=== PATIENT | female | born 1935 | race Caucasian/White ===

== ENCOUNTER 2017-05-20 11:48 | Emergency (ER) | payer MEDICARE, OTHER ==
[2017-05-20 12:22] VITALS: BP 111/59
--- NOTE | 2017-05-20 14:18 | EDM.PDOC ---
ED HPI GENERAL MEDICAL PROBLEM - General Chief Complaint: Lower Extremity Injury/Pain Stated Complaint: FALL Time Seen by Provider: 05/20/17 11:50 Source of Information: Reports: Patient, EMS, Family History Limitations: Reports: Altered Mental Status - History of Present Illness INITIAL COMMENTS - FREE TEXT/NARRATIVE: 81 y.o.w.f. with dementia, came by EMS to the ed after she fell at the memory care unit. As per caregiver, Pt passed out but recover in a few minutes. Pt is not able to give a HPI, family is present. As per ems, pt may have injured her left knee. However, pt was ambulating fine. No F/V N/V BP 81/41 pulse 65 temp 36.4 pulse ox 96% Onset: Today Onset Date: 05/20/17 Onset Time: 11:00 Duration: Minutes:, Improving Location: Reports: Generalized Severity: Mild Improves with: Reports: Rest Worsens with: Reports: Movement Context: Reports: Other (pt passed out and fell) - Related Data Allergies Allergy/AdvReac Type Severity Reaction Status Date / Time citalopram [From Celexa] Allergy Cannot Verified 05/20/17 12:25 Remember donepezil [From Aricept] Allergy Cannot Verified 05/20/17 12:25 Remember propoxyphene Allergy Cannot Verified 05/20/17 12:25 Remember clortrimazole Allergy Cannot Uncoded 05/20/17 12:25 Remember Home Meds: Home Meds Acetaminophen 600 mg PO Q4HR PRN 07/15/16 [History] Alum Hydrox/Mag Hydrox/Simeth [Maalox Advanced] 15 ml PO Q4HR PRN 07/15/16 [ History] Alum Hydrox/Mag Hydrox/Simeth [Maalox Advanced] 30 ml PO DAILY 07/15/16 [History ] Alum Hydrox/Mag Hydrox/Simeth [Mag-Al Plus] 30 ml PO Q4HR PRN 07/15/16 [History] Bisacodyl [Dulcolax] 10 mg RC DAILY PRN 07/15/16 [History] Calcium Carbonate [Tums] 500 mg PO Q4HR PRN 07/15/16 [History] Calcium Polycarbophil [Fiber Laxative] 625 mg PO Q3HR PRN 07/15/16 [History] Docusate Sodium [Colace] 100 mg PO BID 07/15/16 [History] Ibuprofen 200 mg PO Q6HR 07/15/16 [History] Ibuprofen 400 mg PO Q6HR PRN 07/15/16 [History] Lisinopril 20 mg PO DAILY 07/15/16 [History] Loperamide HCl [Imodium A-D] 2 mg PO Q6HR PRN 07/15/16 [History] Magnesium Hydroxide [Milk of Magnesia] 30 ml PO DAILY PRN 07/15/16 [History] Multivitamin [Multivitamins] 1 each PO BID 07/15/16 [History] Na Phos,M-B/Na Phos,Di-Ba [Fleet Enema] 1 bottle RECTAL DAILY PRN 07/15/16 [ History] PEG 400/Hypromellose/Glycerin [Artificial Tears Drops] 15 ml OP Q2HR PRN [History] Pectin [Throat Drops] 1 saleem PO Q2HR 07/15/16 [History] QUEtiapine [SEROquel] 12.5 mg PO DAILY 07/15/16 [History] guaiFENesin [Robitussin] 2 tsp PO Q4HR PRN 07/15/16 [History] Past Medical History HEENT History: Reports: Hard of Hearing, Impaired Vision Cardiovascular History: Reports: High Cholesterol, Hypertension Gastrointestinal History: Reports: Irritable Bowel Syndrome 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: Musculoskeletal History: Reports: Osteoarthritis Neurological History: Reports: Alzheimers Disease Hematologic History: Reports: Anemia Dermatologic History: Reports: Other (See Below) Other Dermatologic History: Rash; cream to tx - Infectious Disease History Infectious Disease History: Reports: C-Difficile, Measles, Mumps - Past Surgical History Musculoskeletal Surgical History: Reports: None Social & Family History - Family History Family Medical History: Noncontributory - Tobacco Use Smoking Status *Q: Never Smoker - Caffeine Use Caffeine Use: Reports: Coffee - Recreational Drug Use Recreational Drug Use: No Review of Systems - Review of Systems Review Of Systems: Unable To Obtain ED EXAM, GENERAL - Physical Exam Exam: See Below Exam Limited By: Altered Mental Status General Appearance: Alert, WD/WN, No Apparent Distress Eye Exam: Bilateral Eye: Normal Inspection Ears: Normal External Exam Ear Exam: Bilateral Ear: Auricle Normal Nose: Normal Inspection Throat/Mouth: Normal Inspection, Normal Lips Head: Atraumatic, Normocephalic Neck: Normal Inspection, Supple, Non-Tender Respiratory/Chest: No Respiratory Distress, Lungs Clear, Normal Breath Sounds, No Accessory Muscle Use, Chest Non-Tender Cardiovascular: Normal Peripheral Pulses, Regular Rate, Rhythm, No Edema, No Gallop Peripheral Pulses: 1+: Radial (L), Radial (R) GI/Abdominal: Normal Bowel Sounds, Soft, Non-Tender (Female) Exam: Deferred Rectal (Female) Exam: Deferred Back Exam: Normal Inspection, Full Range of Motion Extremities: Normal Inspection (Pt has a minor SQ hematom a left ant lat knee, FROM, no discomfort, however.), Normal Range of Motion Neurological: Alert, CN II-XII Intact, Normal Gait, No Motor/Sensory Deficits Psychiatric: Normal Affect Skin Exam: Warm, Dry, Intact, Normal Color, No Rash Lymphatic: No Adenopathy Course - Vital Signs Text/Narrative:: 81 y.o.w.f. with dementia, came by EMS to the ed after she fell at the memory care unit. As per caregiver, Pt passed out but recover in a few minutes. Pt is not able to give a HPI, family is present. As per ems, pt may have injured her left knee. However, pt was ambulating fine. No F/V N/V BP 81/41 pulse 65 temp 36.4 pulse ox 96% PE: WNWD WF with low BP initially. Labs: CBC and BMP WNL GFR 59 Imaging: Not indicated. Impression: Vasovagal syncopy Tx: after the labs returned, Family urged to D/C patient. No I v fluid was given Her recheck BP improved to SBP 112 Reexam: Pt was ambulating independently Plan: D/C with instructions Last Recorded V/S: Last Vital Signs Temp 36.5 C 05/20/17 11:50 Pulse 58 L 05/20/17 12:00 Resp 14 05/20/17 12:00 BP 111/59 L 05/20/17 12:00 Pulse Ox 96 05/20/17 12:00 - Orders/Labs/Meds Labs: Laboratory Tests 05/20/17 05/20/17 05/20/17 Range/Units 12:33 12:35 12:35 WBC 8.5 (4.5-12.0) X10-3/uL RBC 3.97 (3.23-5.20) x10(6)uL Hgb 12.6 (11.5-15.5) g/dL Hct 36.5 (30.0-51.3) % MCV 92.1 (80-96) fL MCH 31.8 (27.7-33.6) pg MCHC 34.5 (32.2-35.4) g/dL RDW 12.5 (11.5-15.5) % Plt Count 223 (125-369) X10(3)uL MPV 8.0 (7.4-10.4) fL Neut % (Auto) 75.8 (46-82) % Lymph % (Auto) 17.0 (13-37) % Andrews % (Auto) 5.5 (4-12) % Eos % (Auto) 1 (1.0-5.0) % Baso % (Auto) 0 (0-2) % Neut # (Auto) 6.5 (1.6-8.3) # Lymph # (Auto) 1.4 (0.6-5.0) # Andrews # (Auto) 0.5 (0.0-1.3) # Eos # (Auto) 0.1 (0.0-0.8) # Baso # (Auto) 0.0 (0.0-0.2) # PT 11.5 H (8.7-11.1) INR 1.14 H (0.89-1.13) Sodium (135-145) mmol/L Potassium (3.5-5.3) mmol/L Chloride (100-110) mmol/L Carbon Dioxide (21-32) mmol/L BUN (7-18) mg/dL Creatinine (0.55-1.02) mg/dL Est Cr Clr Drug Dosing Estimated GFR (MDRD) (>60) BUN/Creatinine Ratio (9-20) Glucose (80-116) mg/dL Calcium (8.6-10.2) mg/dL Urine Color Yellow (YELLOW) Urine Appearance Clear (CLEAR) Urine pH 7.0 H (5.0-6.5) Ur Specific [place] 1.010 (1.010-1.025) Urine Protein Negative (NEGATIVE) mg/dL Urine Glucose (UA) Normal (NEGATIVE) mg/dL Urine Ketones Negative (NEGATIVE) mg/dL Urine Occult Blood Negative (NEGATIVE) Urine Nitrite Negative (NEGATIVE) Urine Bilirubin Negative (NEGATIVE) Urine Urobilinogen Normal (NEGATIVE) mg/dL Ur Leukocyte Esterase Negative (NEGATIVE) Urine RBC 0-5 (0) Urine WBC 0-5 (0) Ur Squamous Epith Cells Occasional (NS,R,O) Urine Bacteria Rare H (NS) Urine Mucus Few H (NS) 05/20/17 Range/Units 12:35 WBC (4.5-12.0) X10-3/uL RBC (3.23-5.20) x10(6)uL Hgb (11.5-15.5) g/dL Hct (30.0-51.3) % MCV (80-96) fL MCH (27.7-33.6) pg MCHC (32.2-35.4) g/dL RDW (11.5-15.5) % Plt Count (125-369) X10(3)uL MPV (7.4-10.4) fL Neut % (Auto) (46-82) % Lymph % (Auto) (13-37) % Andrews % (Auto) (4-12) % Eos % (Auto) (1.0-5.0) % Baso % (Auto) (0-2) % Neut # (Auto) (1.6-8.3) # Lymph # (Auto) (0.6-5.0) # Andrews # (Auto) (0.0-1.3) # Eos # (Auto) (0.0-0.8) # Baso # (Auto) (0.0-0.2) # PT (8.7-11.1) INR (0.89-1.13) Sodium 142 (135-145) mmol/L Potassium 3.8 (3.5-5.3) mmol/L Chloride 108 (100-110) mmol/L Carbon Dioxide 31 (21-32) mmol/L BUN 17 (7-18) mg/dL Creatinine 1.0 (0.55-1.02) mg/dL Est Cr Clr Drug Dosing TNP Estimated GFR (MDRD) 53 L (>60) BUN/Creatinine Ratio 17.0 (9-20) Glucose 127 H (80-116) mg/dL Calcium 8.6 (8.6-10.2) mg/dL Urine Color (YELLOW) Urine Appearance (CLEAR) Urine pH (5.0-6.5) Ur Specific [place] (1.010-1.025) Urine Protein (NEGATIVE) mg/dL Urine Glucose (UA) (NEGATIVE) mg/dL Urine Ketones (NEGATIVE) mg/dL Urine Occult Blood (NEGATIVE) Urine Nitrite (NEGATIVE) Urine Bilirubin (NEGATIVE) Urine Urobilinogen (NEGATIVE) mg/dL Ur Leukocyte Esterase (NEGATIVE) Urine RBC (0) Urine WBC (0) Ur Squamous Epith Cells (NS,R,O) Urine Bacteria (NS) Urine Mucus (NS) Departure - Departure Time of Disposition: 14:16 Disposition: [facility] Condition: Good Clinical Impression: Syncopal episodes Fall Qualifiers: Encounter type: initial encounter Qualified Code(s): W19.XXXA - Unspecified fall, initial encounter Dementia Qualifiers: Dementia type: Alzheimer's disease - Discharge Information Referrals: Nicole Katz COMPUTING ARCHITECT [Primary Care Provider] - Forms: ED Department Discharge Additional Instructions: Please cont your current meds, please f/u please come back if your symptoms get worse acutely. Please increase water intake.
== END 2017-05-20 14:30 ==
LOC: FB.ED 11:48
DX: R55 Syncope and collapse (principal); S80.02XA Contusion of left knee, initial encounter; G30.9 Alzheimer's disease, unspecified; I10 Essential (primary) hypertension; E78.00 Pure hypercholesterolemia, unspecified; Z79.899 Other long term (current) drug therapy; Z88.8 Allergy status to other drugs, medicaments and biological substances; W19.XXXA Unspecified fall, initial encounter; Y92.89 Other specified places as the place of occurrence of the external cause
CPT/HCPCS: 36415; 80048; 81001; 85025; 85610; 99283; 99284

== ENCOUNTER → 2019-05-01 | Outpatient (CLI) | payer MEDICARE, OTHER ==
--- NOTE | 2019-05-02 11:28 | CR ---
INDICATION: Effusion. LEFT ANKLE: Three views of the left ankle were obtained 05/01/19. There appears to be a mild degree of periarticular demineralization, raising question of an inflammatory process at the ankle joint. Soft tissue swelling over the lateral malleolus is also noted. This should be correlated clinically. A definite fracture or dislocation was not identified. The ankle mortise appeared to be fairly intact. There are also noted some mild hypertrophic changes at the ankle mortise. IMPRESSION: 1. Possible periarticular osteoporosis, could be on the basis of inflammatory arthritis or inflammatory disease such as an infectious process - septic joint - correlate clinically. There is some overlying soft tissue swelling laterally. 2. Mild osteoarthritis. Report faxed to Lisa Acharya NP on 05/02/[address] [facility]
== END ==
LOC: FB.CLBR 16:29
PROVIDERS: ATTEND Nurse Practitioner Family
DX: M25.472 Effusion, left ankle (principal); M19.072 Primary osteoarthritis, left ankle and foot
CPT/HCPCS: 73610-LT; 99202

== ENCOUNTER 2019-05-19 13:00 | Emergency (ER) | payer MEDICARE, OTHER ==
[2019-05-19 13:23] VITALS: PULSE 77
--- NOTE | 2019-05-19 14:07 | EDM.PDOC ---
ED HPI GENERAL MEDICAL PROBLEM - General Chief Complaint: Lower Extremity Injury/Pain Stated Complaint: BOOT FOR FOOT Time Seen by Provider: 05/19/19 13:25 Source of Information: Reports: Patient History Limitations: Reports: Other (dementia ) - History of Present Illness INITIAL COMMENTS - FREE TEXT/NARRATIVE: pt had accidental fall last week at assisted living and since then has swelling at left foot, pt has dementia and she is wheel chair pineda , pt denies pain and there was no other medical concerns. - Related Data Allergies Allergy/AdvReac Type Severity Reaction Status Date / Time citalopram [From Celexa] Allergy Cannot Verified 05/19/19 13:08 Remember donepezil [From Aricept] Allergy Cannot Verified 05/19/19 13:08 Remember propoxyphene Allergy Cannot Verified 05/19/19 13:08 Remember clortrimazole Allergy Cannot Uncoded 05/06/18 05:29 Remember Home Meds: Home Meds Acetaminophen 650 mg PO Q4HR PRN 07/15/16 [History] Alum Hydrox/Mag Hydrox/Simeth [Mag-Al Plus] 30 ml PO Q4HR PRN 07/15/16 [History] Ibuprofen 200 mg PO Q6HR PRN 07/15/16 [History] Ibuprofen 400 mg PO Q6HR PRN 07/15/16 [History] Lisinopril 20 mg PO DAILY 07/15/16 [History] Loperamide HCl [Imodium A-D] 2 mg PO ASDIRECTED PRN 07/15/16 [History] Multivitamin [Multivitamins] 1 each PO DAILY 07/15/16 [History] QUEtiapine [SEROquel] 25 mg PO TID 07/15/16 [History] guaiFENesin [Robitussin] 2 tsp PO Q4HR PRN 07/15/16 [History] Memantine HCl [Namenda] 10 mg PO BID 05/06/18 [History] Mirtazapine [Remeron] 15 mg PO BEDTIME 05/06/18 [History] Polyethylene Glycol 3350 [MiraLAX] 17 gm PO DAILY PRN 05/06/18 [History] Sertraline HCl 100 mg PO DAILY 05/06/18 [History] Past Medical History HEENT History: Reports: Hard of Hearing, Impaired Vision Cardiovascular History: Reports: High Cholesterol, Hypertension Gastrointestinal History: Reports: Irritable Bowel Syndrome Other Gastrointestinal History: Irritable bowel syndrome with diarrhea. Diverticulitis of both small and large intestine with perforation and abscess, no bleeding. 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 Chronic pain syndrome. Psychiatric History: Reports: Alzheimers Disease Hematologic History: Reports: Anemia Dermatologic History: Reports: Other (See Below) Other Dermatologic History: Rash; cream to tx - Infectious Disease History Infectious Disease History: Reports: C-Difficile, Measles, Mumps - Past Surgical History Musculoskeletal Surgical History: Reports: None Social & Family History - Family History Family Medical History: Noncontributory - Caffeine Use Caffeine Use: Reports: Coffee Review of Systems - Review of Systems Review Of Systems: Unable To Obtain Reason Not Obtained: dementia ED EXAM, GENERAL - Physical Exam Exam: See Below Exam Limited By: No Limitations General Appearance: Alert, No Apparent Distress Respiratory/Chest: No Respiratory Distress, Lungs Clear Cardiovascular: Normal Peripheral Pulses, Regular Rate, Rhythm, No Murmur GI/Abdominal: Normal Bowel Sounds, Soft, Non-Tender Extremities: Other (swelling and mild erythema over th dorsum of left foot noted , no warmth , CR time is within nl, no much tendernss noted. ) Neurological: Alert, Oriented, CN II-XII Intact Course - Vital Signs Text/Narrative:: multiple nondisplaced metatarsal fractures and sever osteopenia noted on xray of left foot. supportive mng was recommended, pt is wheel chair pineda and will be not weight baring anyway , healthcare business analyst was advised to avoid PT for now for about 2 weeks, apply cold compresses , use over the counter tylenol or motrin as directed and follow with PCP on Thursday for re-check. and SARABJIT was applied over left foot. Last Recorded V/S: Last Vital Signs Temp 37.6 C 05/19/19 13:14 Pulse 77 05/19/19 13:14 Resp 17 05/19/19 13:14 BP 120/81 05/19/19 13:14 Pulse Ox 97 05/19/19 13:14 - Orders/Labs/Meds Orders: Active Orders 24 hr Category Date Time Status Foot Comp Min 3V Lt [CR] Stat Exams 05/19/19 13:44 Taken Departure - Departure Time of Disposition: 14:07 Disposition: Home, Self-Care 01 Clinical Impression: Foot fracture, left - Discharge Information Referrals: Cipriano Pang MD [Primary Care Provider] - - My Orders Last 24 Hours: My Active Orders 05/19/19 13:44 Foot Comp Min 3V Lt [CR] Stat - Assessment/Plan Last 24 Hours: My Active Orders 05/19/19 13:44 Foot Comp Min 3V Lt [CR] Stat
[2019-05-19 15:43] VITALS: BP 133/81
--- NOTE | 2019-05-20 10:44 | CR ---
INDICATION: Had previous left foot fracture. LEFT FOOT: Four images of the left foot in three projections were obtained, - no comparisons at this time. At the proximal metaphysis of the 1st metatarsal, there is an oblique fracture with what appears to be endosteal sclerosis, suggesting subacute fracture site in good position and alignment and only minimally comminuted. Transverse fractures are also noted with comminution at the proximal metaphyses of the 2nd and 3rd metatarsals, also in adequate position and alignment. Osteoarthritic changes are noted at the DIPJs of the 2nd, 3rd, and 4th toes and to a lesser extent the 5th toe, as well as at the 1st metatarsotarsal joint and to a mild degree at the talonavicular joint. Mildly demineralized bony structures suggest the possibility of osteoporosis - correlate clinically. IMPRESSION: 1. Fractures of the 1st, 2nd, and 3rd metatarsals at the proximal metaphyses in adequate position and alignment. 2. Osteoarthritis. MTDD
== END 2019-05-19 14:30 | disposition home or self-care (01) ==
LOC: FB.ED 13:00
DX: S92.315A Nondisplaced fracture of first metatarsal bone, left foot, initial encounter for closed fracture (principal); S92.325A Nondisplaced fracture of second metatarsal bone, left foot, initial encounter for closed fracture; S92.335A Nondisplaced fracture of third metatarsal bone, left foot, initial encounter for closed fracture; I10 Essential (primary) hypertension; G30.9 Alzheimer's disease, unspecified; F02.80 Dementia in other diseases classified elsewhere, unspecified severity, without behavioral disturbance, psychotic disturbance, mood disturbance, and anxiety; Z88.8 Allergy status to other drugs, medicaments and biological substances; Z79.899 Other long term (current) drug therapy; W19.XXXA Unspecified fall, initial encounter; Y92.89 Other specified places as the place of occurrence of the external cause
CPT/HCPCS: 73630-LT; 99283-25